=== PATIENT | male | born 1995 | race Caucasian/White ===

== ENCOUNTER 2016-07-12 02:45 | Emergency (ER) | payer OTHER ==
[~2016-07-12] VITALS: Ht 188 cm; Wt 85.0 kg
[2016-07-12 02:52] VITALS: BP 122/78; PULSE 90; RESP 16; TEMP 98.7; O2SAT 96
--- NOTE | 2016-07-12 02:59 | PD ---
HPI Chief Complaint: Bite or Sting Time Seen by Provider: 02:59 Travel History International Travel<30 days: No Contact w/Intl Traveler<30days: No Traveled to known affect area: No History of Present Illness HPI 20-year-old male with no significant medical history presents to the emergency department in law enforcement custody for evaluation of a dog bite sustained to his right distal lower extremity. The bite was inflicted by a deputy canine. Patient reports pain at the site. He has been ambulatory since the incident. Reports no alterations in sensation the distal affected extremity. Pain is an 8 out of 10. Patient is up-to-date on his tetanus vaccination. He has no other symptoms to report. PFSH Past Medical History Medical History: Denies Significant Hx Social History Alcohol Use: No Tobacco Use: No Substance Use: No Allergies-Medications (Allergen,Severity, Reaction): Coded Allergies: No Known Allergies (Unverified , 07/12/16) Reported Meds & Prescriptions Reported Meds & Active Scripts Active Ibuprofen 800 Mg Tab 800 Mg PO Q8H PRN Augmentin (Amoxicillin-Clavulanate) 875-125 mg Tab 875 Mg PO BID 10 Days not for use in CrCl <30 ml/min. Review of Systems Except as stated in HPI: all other systems reviewed are Neg Physical Exam Narrative GENERAL: Well-nourished male patient in no acute distress. Patient is ambulatory without difficulty. SKIN: Warm and dry. 4 puncture wounds noted on the right distal lower extremity. On the anterior aspect of the extremity there is more of a puncture wound take her that is 6 cm by 3 cm. One puncture wound measures 1 cm in diameter while the other 2 are subcentimeter. Bleeding is controlled. There are superficial abrasions and some bruising on the right dorsal lateral foot. HEAD: Atraumatic. Normocephalic. EYES: Pupils equal and round. No scleral icterus. No injection or drainage. ENT: No nasal bleeding or discharge. Mucous membranes pink and moist. NECK: Trachea midline. No JVD. CARDIOVASCULAR: Regular rate and rhythm. No murmur appreciated. RESPIRATORY: No accessory muscle use. Clear to auscultation. Breath sounds equal bilaterally. GASTROINTESTINAL: Abdomen soft, non-tender, nondistended. Hepatic and splenic margins not palpable. MUSCULOSKELETAL: No obvious deformities. No clubbing. No cyanosis. No edema. Patient has full flexion and extension of the ankle and toes of the affected extremity. Sensation is intact distal affected extremity. Cap refill within normal limits. NEUROLOGICAL: Awake and alert. No obvious cranial nerve deficits. Motor grossly within normal limits. Normal speech. Data Data Orders Tibia/Fibula (Ap/Lat) (07/12/16 ) Ketorolac Inj (Toradol Inj) (07/12/16 03:00) Lidocai-Epi 1%-1:100,000 Inj (Xylocaine- (07/12/16 03:00) Amoxicil-Clavulanate (Augmentin) (07/12/16 04:00) MDM Medical Decision Making Medical Screen Exam Complete: Yes Emergency Medical Condition: Yes Medical Record Reviewed: Yes Differential Diagnosis Puncture wound versus laceration superficial versus deep versus open fracture versus foreign body versus tendon injury Narrative Course 20-year-old male presents to emergency department for evaluation following a dog bite from a PE canine. X-ray imaging is without acute bony abnormality. The wound is irrigated and loosely approximated. Patient is counseled on care. He will be prescribed Augmentin and is encouraged to follow-up with primary care provider. He agrees to return immediately with any acute worsening symptoms. Procedures Procedure Narrative LACERATION LOCATION: Right distal lower extremity LENGTH: 6 cm x 3 cm NUMBER OF STITCHES/MEDARDO: 2 horizontal mattress and 2 single interrupted sutures REPAIR: The area of the laceration was prepped with Betadine and sterilely draped. The laceration was infiltrated with 1% lidocaine with epinephrine. The wound was copiously irrigated and explored without evidence of foreign body , tendon injury or neurovascular injury. The wound was closed using 4-0 Prolene. This was a single layer repair. A sterile dressing was applied. The patient was advised to keep the dressing clean and dry. Patient tolerated the procedure well. LACERATION LOCATION: Right distal lower extremity LENGTH: 1 cm NUMBER OF STITCHES/MEDARDO: 1 single interrupted REPAIR: The area of the laceration was prepped with Betadine and sterilely draped. The laceration was infiltrated with 1% lidocaine with epinephrine. The wound was copiously irrigated and explored without evidence of foreign body , tendon injury or neurovascular injury. The wound was closed using 4-0 Prolene. This was a single layer repair. A sterile dressing was applied. The patient was advised to keep the dressing clean and dry. Patient tolerated the procedure well. Diagnosis Primary Impression: Dog bite of lower leg Qualified Code: S81.851A - Dog bite of lower leg, right, initial encounter Referrals: Primary Care Physician Patient Instructions: Animal Bite (ED), General Instructions Additional Instructions: Keep the area clean and dry Wash it 2 times a day with warm soapy water Pat it dry Apply antibiotic ointment after cleansing it Elevate to reduce pain and swelling Follow-up with a primary care provider Sutures are to be removed in 14 days. This can be done in the emergency department or her primary care provider's office Return immediately to the emergency department with any acute worsening of symptoms Med/Other Pt SpecificInfo: Prescription(s) given Scripts Ibuprofen 800 Mg [id number] Mg PO Q8H PRN (Pain/Inflammation) #30 TAB Ref 0 Prov:Zenia Burt 07/12/16 Amoxicillin-Clavulanate (Augmentin)875-125 mg [id number] Mg PO BID 10 Days Ref 0 not for use in CrCl <30 ml/min. Prov:Zenia Burt 07/12/16 Disposition: 01 DISCHARGE HOME Condition: Stable Zenia Burt Jul 12, 2016 02:59
[2016-07-12] MEDS ORDERED: LIDOCAINE 1%/EPINEPHrine 1:100,000 SOLN 20 ML VIAL INFIL ONE (03:00)
[2016-07-12] MEDS ORDERED: KETOROLAC TROMETHAMINE 60 MG/2 ML (IM) VIAL IM ONE (03:00)
--- NOTE | 2016-07-12 03:49 | RADRPT ---
EXAM DATE/TIME: 07/12/2016 01:19 [facility] COMPARISON: No previous studies available for comparison. INDICATIONS : Police canine bites to the distal right tibia. MEDICAL HISTORY : None. SURGICAL HISTORY : None. ENCOUNTER: Initial ACUITY: 1 day PAIN SCORE: 10/10 LOCATION: Right leg FINDINGS: Bone density is normal. There are no fractures. There is subcutaneous emphysema and laceration of the right lower leg anterolaterally. CONCLUSION: Soft tissue injury. Rj Chapa MD on July 12, 2016 at 3:47 Board Certified Radiologist. This report was verified electronically.
[2016-07-12] MEDS ORDERED: AMOXICILLIN/CLAVULANATE K 875 MG TAB PO ONE (04:00)
[2016-07-12] MEDS ORDERED: AUGM875T PO (04:01)
[2016-07-12] MEDS ORDERED: IBUP800T23 PO (04:01)
== END 2016-07-12 04:34 | disposition home or self-care (01) ==
LOC: NEPB 02:45
DX: S81.851A Open bite, right lower leg, initial encounter (principal); Y35.893A Legal intervention involving other specified means, suspect injured, initial encounter; W54.0XXA Bitten by dog, initial encounter
CPT/HCPCS: 12002; 73590; 96372; 99283; J1885